=== PATIENT | male | born 1995 | race African-American/Black ===

== ENCOUNTER 2018-10-17 23:25 | Emergency (ER) | payer SELFPAY ==
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
[2018-10-18 00:30] VITALS: BP 137/94
== END 2018-10-18 01:17 | disposition home or self-care (01) ==
LOC: ER 23:45
DX: S01.81XA Laceration without foreign body of other part of head, initial encounter (principal); S40.812A Abrasion of left upper arm, initial encounter; V19.9XXA Pedal cyclist (driver) (passenger) injured in unspecified traffic accident, initial encounter
CPT/HCPCS: 99283